=== PATIENT | male | born 1960 | race Caucasian/White ===

== ENCOUNTER → 2019-12-15 | Outpatient (CLI) | payer OTHER ==
--- NOTE | 2019-12-16 05:18 | REP ---
Clinical: Solitary pulmonary nodule. Technique: Axial noncontrast images from the thoracic inlet to the upper abdomen with coronal and sagittal re-formations. Comparison: 02/09/2019. Findings: Solitary noncalcified 2.0 cm mass is identified in the superior segment of the right lower lobe which is increased in size from most recent prior examination available dated 02/09/2019 when the lesion measured approximately 1 cm. Small mediastinal lymph nodes measuring up to approximately 9 mm and nonspecific and relatively stable. No further nodule or mass identified. No consolidation. No effusion. No pneumothorax. Tracheobronchial tree is patent. Mediastinum demonstrates atherosclerotic changes to the thoracic aorta and coronary arteries without aortic aneurysm or cardiomegaly. No pericardial effusion. Surrounding musculoskeletal structures demonstrate age-related changes without focal abnormality. Limited upper abdomen demonstrates normal bilateral adrenal glands and presumed renal cysts. Impression: 1. Solitary nodule in the superior segment right lower lobe has increased to 2.0 cm. Pulmonary consultation is recommended. PET-CT and/or biopsy should be considered. Electronically Signed by Guillermo Quezada MD 12/16/2019 05:08 A
== END ==
LOC: M RAD 08:33
PROVIDERS: ATTEND Internal Medicine Pulmonary Disease
DX: R91.1 Solitary pulmonary nodule (principal)

== ENCOUNTER → 2020-01-17 | Outpatient (CLI) | payer OTHER ==
[~2020-01-17] MED LIST: ACET-683 PO; AMLO10TA5 PO; ANOR1AER PO; ASPI81TA26 PO; CARV12.5 PO; CARV6.25 PO; CIAL5TAB PO; CLOTCRE3 TOP; DULO1CAP4 PO; GLIP1TAB11 PO; GLIP5TAB20 PO; IPRA6SP NARES; JANU100T PO; LORA-243 PO; LOSA100T50 PO; LYRI200C PO; METF10004 PO; PRAV40TA2 PO; VENTAER INH
[2020-01-17 18:02] LABS: PLATELET COUNT, AUTOMATED 209 10^3/uL (150-450)
[2020-01-17 18:14] LABS: INR 0.96; PROTHROMBIN TIME 12.5 SECONDS (11.8-14.0)
[2020-01-17 18:15] LABS: PARTIAL THROMBOPLASTIN TIME 35.9 SECONDS (25.0-38.4)
== END ==
LOC: M PLALAB 15:37
PROVIDERS: ATTEND Internal Medicine Pulmonary Disease
DX: R91.1 Solitary pulmonary nodule (principal)

== ENCOUNTER → 2020-01-31 | Outpatient (CLI) | payer OTHER ==
[~2020-01-31] MED LIST changes: -AMLO10TA5 PO; +AMLO1TAB25 PO
--- NOTE | 2020-02-09 15:32 | SLEEPHOME ---
DATE OF PROCEDURE: 01/31/2020 ORDERED BY: Dr. Lerma Diagnostic home sleep testing was performed due to concern for the obstructive sleep apnea syndrome. For testing a nocturnal T3 respiratory monitoring device was used. Continuous record was made of pulse, oxygen saturation, airflow, chest and abdominal strain, and body position. 9 hours and 59 minutes of data were reviewed. They were 6 hours and 15 minutes marked as time in bed. During the interval marked time in bed, there were 53 respiratory events identified of 10 seconds in duration or greater for a respiratory event index of 8.5. The events were obstructive not exclusive to sleep position. Baseline pulse rate was 88 beats per minute; pulse rate ranged 75-104. Baseline saturation was 90%; saturations fell to 77%. Testing was performed in both the supine and nonsupine positions. IMPRESSION: Abnormal home sleep testing with repetitive respiratory events and oxygen desaturations to 77% with a respiratory event index of 8.5 is consistent with the obstructive sleep apnea syndrome. RECOMMENDATIONS: The patient should be encouraged to undergo formal sleep evaluation.
== END ==
LOC: M SLEEP HO 07:37
PROVIDERS: ATTEND Internal Medicine Pulmonary Disease
DX: R40.0 Somnolence (principal)

== ENCOUNTER → 2020-01-31 | Outpatient (CLI) | payer OTHER ==
[~2020-01-31] MED LIST changes: +LIDOCAINE 1% MDV 20ML VIAL As Ordered ONE
[2020-01-31 12:19] VITALS: BP 156/77
--- NOTE | 2020-01-31 15:31 | REP ---
CHEST, SINGLE VIEW: Single view of the chest is performed status post left lung biopsy. There is no pneumothorax. No acute findings are seen. IMPRESSION: No pneumothorax status post left lung biopsy. Electronically Signed by Frank Chilel MD 02/01/2020 11:16 P
--- NOTE | 2020-02-01 12:33 | REP ---
CT-guided right lower lobe lung biopsy The procedure is performed by JUVECNIO Brewster, under the direct supervision of Dr. Chilel. The patient has a history of a solitary nodule in the superior segment of the right lower lobe that has increased in size on the CT dated 12/15/2019 . The risks and benefits of the procedure were explained to the patient and informed consent was obtained both orally and written. Directly prior to the start of the procedure, a formal timeout was done in the exam room. The right lower lobe lung mass was localized using CT guidance. Skin was prepped and draped in the usual sterile fashion. 3 ml of 1% lidocaine 10 mg/ml was used as a local anesthetic. Using CT guidance a 19/20 gauge coaxial needle biopsy system was inserted and advanced into the nodule. 8 core biopsy samples were obtained and sent to the lab. CT images obtained directly after the biopsy show no evidence of pneumothorax. After the appropriate amount of monitored convalescence the patient was discharged from the department. Reviewed by JUVENCIO Byers 01/31/2020 02:13 P Electronically Signed by Frank Chilel MD 02/01/2020 12:24 P
== END ==
LOC: M IRPRO 07:54
PROVIDERS: ATTEND Internal Medicine Pulmonary Disease
DX: C34.31 Malignant neoplasm of lower lobe, right bronchus or lung (principal)

== ENCOUNTER → 2020-03-07 | Outpatient (CLI) | payer OTHER ==
[~2020-03-07] MED LIST changes: -LIDOCAINE 1% MDV 20ML VIAL As Ordered ONE
--- NOTE | 2020-04-14 11:57 | REP ---
WHOLE BODY PET CT SCAN FOR EVALUATION OF A RIGHT LUNG NODULE Dealy in reporting results from hospital computer malfunction from malware/ [employer]. COMPARISON: Recent CT of the chest dated 12/15/2019 that demonstrated an enlarging nodule in the superior segment of the right lower lobe. Whole body scanning is performed from the skull base to the upper thighs. NECK: There are no hypermetabolic foci. There is artifactual labeling of tonsillar tissues and vascular structures. CHEST: The known nodule in the right lung loweer lobe demonstrates hypermetabolic uptake with a maximal standard uptake value of 4.0. There are no other foci in the lung jones. There are no foci in the mediastinum, right or left nciolette, or right or left axilla. ABDOMEN, PELVIS, AND UPPER THIGHS: There are no hypermetabolic foci. There is nonspecific bowel radiolabeling. IMPRESSION: The patients enlarging nodule in the right lower lobe superior segment demonstrates hypermetabolic uptake. There are no other hypermetabolic foci. The study is performed with 7.03 mCi of F18 FDG. MTDD
== END ==
LOC: M PLARAD 13:30
PROVIDERS: ATTEND Internal Medicine Pulmonary Disease
DX: R91.1 Solitary pulmonary nodule (principal)

== ENCOUNTER → 2020-03-21 | Outpatient (CLI) | payer OTHER | LOC: M ONCR 09:30 | PROVIDERS: ATTEND General Practice | DX: C34.90 Malignant neoplasm of unspecified part of unspecified bronchus or lung (principal) ==

== ENCOUNTER → 2020-04-19 | Outpatient (RCR) | payer OTHER | LOC: M ONCR 03-30 13:58 | PROVIDERS: ATTEND General Practice | DX: C34.31 Malignant neoplasm of lower lobe, right bronchus or lung (principal) ==

== ENCOUNTER 2020-04-25 11:29 | Outpatient (RCR) | payer OTHER | END 2020-05-20 | LOC: M ONCR 11:29 | PROVIDERS: ATTEND General Practice | DX: C34.31 Malignant neoplasm of lower lobe, right bronchus or lung (principal) ==

== ENCOUNTER → 2020-07-28 | Outpatient (CLI) | payer OTHER ==
[~2020-07-28] MED LIST changes: +ISOVUE-370 76% 100ML VIAL As Ordered ONE; +PRED20TA PO
--- NOTE | 2020-07-28 14:29 | REP ---
INDICATION: LUNG CA FOLLOW UP COMPARISON: None TECHNIQUE: Axial contrast enhanced images from the thoracic inlet to the upper abdomen with coronal and sagittal reformations using 75 ml Isovue 370 intravenous contrast material. This CT examination was performed using the following dose reduction techniques: Automated exposure control, adjustment of mA and/or kv according to the patient's size, and use of iterative reconstruction technique. FINDINGS: Nodular lesion in the apical segment right lower lobe measures approximately 1.8 cm diameter and now demonstrates small amount of adjacent stranding possibly related to post biopsy changes. Reactive mediastinal adenopathy remains stable with lymph nodes up to 9 mm short axis diameter. Remainder of lung jones are well aerated and clear. No further significant nodules or mass lesions are identified. No consolidation. No effusion. No pneumothorax. Tracheobronchial tree is patent. Mediastinum demonstrates stable atherosclerotic changes to the thoracic aorta and coronary arteries without aortic aneurysm or dissection. No cardiomegaly or pericardial effusion. Limited upper abdomen demonstrates normal bilateral adrenal glands along with hepatosteatosis and presumed bilateral renal cysts. IMPRESSION: 1. Nodular apical right lower lobe lesion similar to prior examination. No new lesions or abnormalities are identified. 2. Nonacute upper abdominal findings. <Electronically signed by Guillermo Quezada > 07/28/20 [id number]
== END ==
LOC: M RAD 12:45
PROVIDERS: ATTEND General Practice
DX: C34.31 Malignant neoplasm of lower lobe, right bronchus or lung (principal); I70.0 Atherosclerosis of aorta; I25.10 Atherosclerotic heart disease of native coronary artery without angina pectoris
CPT/HCPCS: 71260; Q9967

== ENCOUNTER → 2020-08-02 | Outpatient (CLI) | payer OTHER ==
[~2020-08-02] MED LIST changes: -ISOVUE-370 76% 100ML VIAL As Ordered ONE
--- NOTE | 2020-08-02 11:38 | RADONC ---
Radiation Oncology Hx/FUP Radiation Oncology Hx/FUP Date of Service: Aug 02, 2020 Pt Identifier Boris Wilkins is a 59 year old male seen for a followup visit today at the department of radiation oncology for a history of stage I NSCLC of the RLL [id number] he completed SBRT 60 Gy in 5 fractions on 04/25/20. Diagnosis/Treatment History Oncologic History Mr. Wilkins is a 59 year old male, current 2 pack per day smoker with mild COPD, and a newly diagnosed stage I, [id number] NSCLC of the RLL. He has been evaluated by Dr. Reyes and deemed not a good lobectomy candidate. He is seen today for consideration of SBRT to treat this lesion. Of note the lesion was first detected on CT ~8 years ago and has been followed expectantly until it was noted to have grown on CT from 12/15/19. Relevant Data: 01/31/20 CT biopsy Pathology showing NSCLC (adenocarcinoma) 03/07/20 PET-CT Demonstrating uptake in the RLL lesion, no mediastinal or distant uptake 07/28/19 CT chest decrease in the size of the treated lesion ~1.5 cm (from ~2 cm) Interval History Boris is doing well. No pain in the chest. Has some dysphagia to pills, hoping to see Dr. Reyes about this soon. Has minimal cough. Taking COPD controller meds, not using rescue inhaler often. Has noted some MCNEIL in recent months, which is largely stable. Thinks it might be a little worse since SBRT. No fevers, chills or weight loss. Current Therapy Surveillance Stage Stage IA3 NSCLC RLL [id number] Social History: Current 1/2 pk per day smoker 50+ pack years Non-drinker Allergies / Meds Allergies: Coded Allergies: bee venom protein (honey bee) (Verified Allergy, Severe, ANAPHYLAXIS, 01/31/20) Home Meds Active Scripts Prednisone (Prednisone) 20 Mg Tablet, 2 TAB PO DAILY for 5 Days, #10 TAB Prov:JAKY VAUGHN MD 08/02/20 Reported Medications Glipizide (Glipizide Xl) 10 Mg Tab.er.24, 10 MG PO BID, TAB 01/31/20 Aspirin (Aspirin EC) 81 Mg Tablet.dr, 81 MG PO DAILY, TAB 01/27/20 Metformin HCl (Metformin HCl) 1,000 Mg Tablet, 1000 MG PO BID, TAB 01/27/20 Pregabalin (Lyrica) 200 Mg Capsule, 200 MG PO BID 01/27/20 Amlodipine Besylate (Amlodipine Besylate) 10 Mg Tablet, 10 MG PO QPM 01/27/20 Carvedilol (Carvedilol) 12.5 Mg Tablet, 12.5 MG PO BID 01/27/20 Losartan Potassium (Losartan Potassium) 100 Mg Tablet, 100 MG PO QHS 01/27/20 Pravastatin Sodium (Pravastatin Sodium) 40 Mg Tablet, 40 MG PO QPM 01/27/20 Duloxetine Hcl (Duloxetine HCl) 20 Mg Capsule.dr, 20 MG PO DAILY 01/27/20 Umeclidinium Brm/Vilanterol Tr (Anoro Ellipta 62.5-25 Mcg INH) 1 Each Blst.w.dev, 1 PUFF PO DAILY 01/27/20 Review of Systems Review of Systems Constitutional: Denies: Chills, Fever, Fatigue, Weight Loss Eyes: Denies: Pain HEENT: Denies: Head Aches Skin: Denies: Rash Pulmonary: Reports: Dyspnea; Denies: Cough, Pleuritic Chest Pain Cardiovascular: Denies: Chest Pain, Palpitations Gastrointestinal: Denies: Nausea, Vomiting, Abdominal Pain Genitourinary: Denies: Dysuria Hematologic: Denies: Bruising Endocrine: Denies: Polydipsia Musculoskeletal: Denies: Neck pain, Back pain Neurological: Denies: Weakness, Numbness Psych: Reports: Mood Normal Physical Examination Vital Signs Wt 272 General Exam: Positive: Alert, Cooperative; Negative: No Acute Distress Eye Exam: Positive: PERRLA, EOMI ENT EXAM: Positive: Atraumatic Neck Exam: Positive: Supple Chest Exam: Positive: Clear to auscultation, Normal air movement; Negative: Wheezing Heart Exam: Positive: Rate Normal Abdomen Exam: Positive: Normal bowel sounds, Soft; Negative: Tenderness Extremity Exam: Negative: Edema Skin Exam: Positive: Nl turgor and temperature; Negative: Rash Neuro Exam: Positive: Normal Gait, Normal Speech, Cranial Nerves 3-12 NL Psych Exam: Positive: Mental status NL, Mood NL Diagnostic and Laboratory Diagnostic Review Radiologic images, relevant labs and pathology reports were personally reviewed and discussed with Mr. Wilkins. Assessment and Plan Impression Assessment Mr. Wilkins is a 59 year old male with a history of stage I NSCLC of the RLL [id number] he completed SBRT 60 Gy in 5 fractions on 04/25/20. Has some intermittent MCNEIL, worse recently, may be slight COPD exacerbation. Amenable to pulse of steroid. Will give 40 mg x 5 days. Hesitate to do longer due to DMII. His tumor is shrinking on the 07/28/20 CT chest showing good response to treatment with mild associated fibrosis. Will scan again in 6 months time. He prefers non-contrast scan as he is on metformin. He will call Dr. Reyes regarding his dysphagia, which is not related to RT. Performance Status ECOG [address] chest without contrast in 6 months Follow up in 6 months Prednisone 40 mg x 5 days, patient will call if ineffective or breathing worsens Mr. Wilkins was encouraged to call with questions or concerns in the interim period. AJKY VAUGHN MD Aug 02, 2020 11:38
== END ==
LOC: M ONCR 10:22
PROVIDERS: ATTEND General Practice
DX: Z08 Encounter for follow-up examination after completed treatment for malignant neoplasm (principal); C34.31 Malignant neoplasm of lower lobe, right bronchus or lung; F17.200 Nicotine dependence, unspecified, uncomplicated; Z92.3 Personal history of irradiation

== ENCOUNTER → 2021-01-30 | Outpatient (CLI) | payer OTHER ==
[~2021-01-30] MED LIST changes: +ADV250INH INH; +LOSA100T45 PO; -LOSA100T50 PO
== END ==
LOC: M RAD 11:55
PROVIDERS: ATTEND General Practice
DX: C34.90 Malignant neoplasm of unspecified part of unspecified bronchus or lung (principal)

== ENCOUNTER → 2021-02-02 | Outpatient (CLI) | payer OTHER ==
[~2021-02-02] MED LIST changes: -ADV250INH INH; -LOSA100T45 PO; +LOSA100T50 PO
[2021-02-02 10:29] LABS: BASO # 0.1 10^3/uL (0.0-0.2); BASO % 0.7 % (0.0-1.0); EOS # 0.2 10^3/uL (0.0-0.5); EOS % 2.1 % (0.0-3.0); HEMATOCRIT 49.4 % (42.0-52.0); HEMOGLOBIN 16.2 g/dl (13.5-17.5); LYMPH # 1.8 10^3/uL (1.5-5.0); LYMPH % 17.1 % (24.0-44.0); MEAN CORPUSCULAR HEMOGLOBIN 28.9 pg (27.0-33.0); MEAN CORPUSCULAR HGB CONC 32.8 g/dl (32.0-36.5); MEAN CORPUSCULAR VOLUME 88.1 fl (80.0-96.0); MONO # 0.7 10^3/uL (0.0-0.8); MONO % 6.7 % (2.0-8.0); NEUTROPHILS # 7.8 10^3/uL (1.5-8.5); NEUTROPHILS % 72.7 % (36.0-66.0); PLATELET COUNT, AUTOMATED 175 10^3/uL (150-450); RED BLOOD COUNT 5.61 10^6/uL (4.30-6.10); WHITE BLOOD COUNT 10.7 10^3/uL (4.0-10.0)
[2021-02-02 11:00] LABS: AMYLASE 40 U/L (25-115); LIPASE 215 U/L (73-393)
[2021-02-02 11:03] LABS: ALBUMIN 3.4 GM/DL (3.2-5.2); ALT/SGPT 80 U/L (12-78); BILIRUBIN,TOTAL 0.3 MG/DL (0.2-1.0); BLOOD UREA NITROGEN 16 MG/DL (7-18); CALCIUM LEVEL 10.3 MG/DL (8.8-10.2); CARBON DIOXIDE LEVEL 24 MEQ/L (21-32); CHLORIDE LEVEL 106 MEQ/L (98-107); CREATININE FOR GFR 0.72 MG/DL (0.70-1.30); GLOMERULAR FILTRATION RATE > 60.0 (>49); GLUCOSE, FASTING 302 MG/DL (70-100); POTASSIUM SERUM 4.4 MEQ/L (3.5-5.1); SODIUM LEVEL 137 MEQ/L (136-145); TOTAL PROTEIN 7.4 GM/DL (6.4-8.2)
== END ==
LOC: M ONCR 09:40
PROVIDERS: ATTEND General Practice
DX: C34.31 Malignant neoplasm of lower lobe, right bronchus or lung (principal)

== ENCOUNTER → 2021-02-02 | Outpatient (CLI) | payer OTHER ==
--- NOTE | 2021-02-02 10:21 | RADONC ---
Radiation Oncology Hx/FUP Radiation Oncology Hx/FUP Date of Service: Feb 02, 2021 Pt Identifier Boris Wilkins is a 60 year old male current smoker seen for a followup visit today at the department of radiation oncology for a history of stage I NSCLC of the RLL [id number] he completed SBRT 60 Gy in 5 fractions on 04/25/20. Diagnosis/Treatment History Oncologic History 2020: Newly diagnosed stage I, [id number] NSCLC of the RLL. He has been evaluated by Dr. Reyes and deemed not a good lobectomy candidate. He is seen today for consideration of SBRT to treat this lesion. Of note the lesion was first detected on CT ~8 years ago and has been followed expectantly until it was noted to have grown on CT from 12/15/19. 01/31/20 CT biopsy pathology showing NSCLC (adenocarcinoma) 03/07/20 PET-CT Demonstrating uptake in the RLL lesion, no mediastinal or distant uptake 07/28/20 CT chest decrease in the size of the treated lesion ~1.5 cm (from ~2 cm) 01/30/21 CT chest with further decrease in lesion size now 1.2 cm, no new lesions Survivorship: Test Due Next Last result Notes TSH, T4* 6m post-tx, then q1y N/A Carotid US* q10 y post-tx N/A Smoking cessation Assess annually if applicable Today Chest imaging As indicated, indefinite CT surveillance 07/2021 No new lesions of concern Mammograms Min q1y, in eligible female patients N/A Echocardiogram q10y post treatment if mediastinum treated N/A PFTs As indicated N/A CBC,CMP, Lipids q1y Today Interval History Boris reports he is being worked up by urology for obstructive voiding symptoms and concern for prostate cancer. He has stable MCNEIL, no cough, some mild dysphagia to pills, and solids as before. Not too bothersome. His main complaint today is RUQ pain, sharp intermittent, not associated with meals, no fevers or chills. No alleviating or exacerbating factors. Pain usually lasts for minutes, it is sometimes associated with tenderness when he presses on his abdomen. Appetite good and weight is up. Still smoking, no desire to quit today. Current Therapy Surveillance Stage RLL NSCLC stage IA3 [id number] Social History: Current 1 pk per day smoker 50+ pack years Non-drinker Allergies / Meds Allergies: Coded Allergies: bee venom protein (honey bee) (Verified Allergy, Severe, ANAPHYLAXIS, 01/31/20) Home Meds Active Scripts Prednisone (Prednisone) 20 Mg Tablet, 2 TAB PO DAILY for 5 Days, #10 TAB Prov:JAKY VAUGHN MD 08/02/20 Reported Medications Glipizide (Glipizide Xl) 10 Mg Tab.er.24, 10 MG PO BID, TAB 01/31/20 Aspirin (Aspirin EC) 81 Mg Tablet.dr, 81 MG PO DAILY, TAB 01/27/20 Metformin HCl (Metformin HCl) 1,000 Mg Tablet, 1000 MG PO BID, TAB 01/27/20 Pregabalin (Lyrica) 200 Mg Capsule, 200 MG PO BID 01/27/20 Amlodipine Besylate (Amlodipine Besylate) 10 Mg Tablet, 10 MG PO QPM 01/27/20 Carvedilol (Carvedilol) 12.5 Mg Tablet, 12.5 MG PO BID 01/27/20 Losartan Potassium (Losartan Potassium) 100 Mg Tablet, 100 MG PO QHS 01/27/20 Pravastatin Sodium (Pravastatin Sodium) 40 Mg Tablet, 40 MG PO QPM 01/27/20 Duloxetine Hcl (Duloxetine HCl) 20 Mg Capsule.dr, 20 MG PO DAILY 01/27/20 Umeclidinium Brm/Vilanterol Tr (Anoro Ellipta 62.5-25 Mcg INH) 1 Each Blst.w.dev, 1 PUFF PO DAILY 01/27/20 Review of Systems Review of Systems Constitutional: Reports: Fatigue; Denies: Chills, Fever, Weight Loss Eyes: Denies: Pain HEENT: Denies: Head Aches Skin: Denies: Rash Pulmonary: Reports: Dyspnea; Denies: Cough Cardiovascular: Denies: Chest Pain Gastrointestinal: Reports: Abdominal Pain; Denies: Nausea, Vomiting, Diarrhea, Hematochezia Genitourinary: Reports: Frequency; Denies: Dysuria, Retention Hematologic: Denies: Bruising Musculoskeletal: Denies: Neck pain, Back pain Neurological: Denies: Weakness, Numbness Psych: Reports: Mood Normal Physical Examination Vital Signs Ht 69" Wt 276 lbs T 97.1 P 108 RR 18 BP 155/80 O2 95% Pain 0 Fatigue 2 General Exam: Positive: Alert, Cooperative, No Acute Distress Eye Exam: Positive: PERRLAERROL ENT EXAM: Positive: Atraumatic Neck Exam: Positive: Supple; Negative: Lymphadenopathy Chest Exam: Positive: Clear to auscultation, Normal air movement; Negative: Rales, Wheezing Heart Exam: Positive: Rate Normal, Regular Rhythm Abdomen Exam: Positive: Normal bowel sounds; Negative: Soft (Abdomen is distended, non-tender, no fluid wave. Deep palpation in RUQ is negative for tenderness. ) Extremity Exam: Negative: Edema Neuro Exam: Positive: Normal Gait, Normal Speech, Cranial Nerves 3-12 NL Psych Exam: Positive: Mental status NL Diagnostic and Laboratory Diagnostic Review Radiologic images, relevant labs and pathology reports were personally reviewed and discussed with Mr. Wilkins. Assessment and Plan Impression Assessment Mr. Wilkins is a 60 year old male with a history of current smoker seen for a followup visit today at the department of radiation oncology for a history of stage I NSCLC of the RLL [id number] he completed SBRT 60 Gy in 5 fractions on 04/25/20. He is doing well from a lung cancer standpoint, the treated lesion continues to regress. For this we discussed another scan in 6 months time. With respect to smoking, we spent 4 minutes reviewing quit aids, he was polite and said he would think about quitting but is not ready to seriously consider it at this time. For his recent onset of RUQ pain, I wonder about gallbladder pathology, given the location and quality of the pain as well as his habitus. For this we discussed checking LFTs today and ordering a RUQ US to be done non-urgently. If there are any concerning findings we could then refer appropriately. I will see him back in [address] chest. Performance Status ECOG 1 Plan [address] chest RUQ US and bloodwork today Mr. Wilkins was encouraged to call with questions or concerns in the interim period. Billing Statement Total time of [32] minutes was spent preparing for the visit [2], obtaining HPI [5], examining the patient [4], reviewing diagnostic tests [4], discussing management options [8], coordinating care [2], and writing this note [7]. JAKY VAUGHN MD Feb 02, 2021 10:21
== END ==
LOC: M ONCR 08:59
PROVIDERS: ATTEND General Practice
DX: C34.31 Malignant neoplasm of lower lobe, right bronchus or lung (principal); R10.11 Right upper quadrant pain; F17.210 Nicotine dependence, cigarettes, uncomplicated; N13.9 Obstructive and reflux uropathy, unspecified; R06.09 Other forms of dyspnea; R13.10 Dysphagia, unspecified; Z79.899 Other long term (current) drug therapy; Z91.013 Allergy to seafood; Z92.3 Personal history of irradiation

== ENCOUNTER → 2021-02-15 | Outpatient (CLI) | payer OTHER ==
--- NOTE | 2021-02-15 10:41 | REP ---
INDICATION: RUQ PAIN. COMPARISON: CT chest without 01/30/2021 TECHNIQUE: Standard right upper quadrant sonography. FINDINGS: There is diffuse homogeneous hyperechogenicity throughout the liver. Liver is enlarged. Left lobe is mildly prominent as well. Hepatic contour is smooth. There is a 7 x 5 mm anechoic subcapsular focus in lateral segment left hepatic lobe consistent with a small cyst. I cannot see this in retrospect on the CT 2 weeks ago. The gallbladder is adequately filled. There is no wall thickening, mass or stone. There is fold in the gallbladder fundus as an anatomic variation. Technologist notes there is some mild tenderness on scanning. Common duct is 5.5 mm without a filling defect. Pancreas is obscured by extensive gas shadowing. The right kidney is 14.9 x 6.3 x 6 cm. It has sinus lipomatosis increased central fat with echogenic vessels in the hilum. 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 The exam is quite limited by body habitus considerations and extensive bowel gas. IMPRESSION: 1. Diffuse fatty infiltration of the liver with hepatomegaly and some mild prominence left hepatic lobe but smooth hepatic contours, homogeneous echotexture and no biliary dilatation, mass or ascites. There is a 7 x 5 mm hypoechoic focus peripherally subcapsular region of the left lobe, not seen on previous CT in retrospect. This is too small to precisely characterize but most likely represents a very small cyst. 2. Gallbladder without wall thickening, stone, pericholecystic fluid or sludge. Technologist notes some mild tenderness on scanning. Normal common duct at 5.5 mm without filling defect. 3. Right kidney without hydronephrosis the. Pancreas is obscured by gas shadowing. <Electronically signed by Narciso Vasquez > 02/15/21 [id number]
== END ==
LOC: M RAD 09:12
PROVIDERS: ATTEND General Practice
DX: R10.11 Right upper quadrant pain (principal)

== ENCOUNTER → 2021-08-09 | Outpatient (CLI) | payer OTHER ==
[~2021-08-09] MED LIST changes: +ADV250INH INH; +LOSA100T45 PO; -LOSA100T50 PO
== END ==
LOC: M ONCR 12:03
PROVIDERS: ATTEND General Practice
DX: C34.31 Malignant neoplasm of lower lobe, right bronchus or lung (principal); F17.210 Nicotine dependence, cigarettes, uncomplicated; Z92.3 Personal history of irradiation; Z91.030 Bee allergy status; Z79.899 Other long term (current) drug therapy

== ENCOUNTER → 2022-02-21 | Outpatient (CLI) | payer OTHER | LOC: M ONCR 11:02 | PROVIDERS: ATTEND General Practice | DX: R91.8 Other nonspecific abnormal finding of lung field (principal); J70.1 Chronic and other pulmonary manifestations due to radiation; R05.9 Cough, unspecified; R06.09 Other forms of dyspnea; Z92.3 Personal history of irradiation ==

== ENCOUNTER → 2022-05-27 | Outpatient (CLI) | payer OTHER | LOC: M ONCR 10:37 | PROVIDERS: ATTEND General Practice | DX: C34.31 Malignant neoplasm of lower lobe, right bronchus or lung (principal); F17.210 Nicotine dependence, cigarettes, uncomplicated; R07.89 Other chest pain; Z91.030 Bee allergy status; Z79.899 Other long term (current) drug therapy; Z79.82 Long term (current) use of aspirin ==

== ENCOUNTER → 2022-11-27 | Outpatient (CLI) | payer OTHER ==
[~2022-11-27] MED LIST changes: -LOSA100T45 PO; +LOSA100T46 PO
== END ==
LOC: M ONCR 14:00
PROVIDERS: ATTEND General Practice
DX: C34.31 Malignant neoplasm of lower lobe, right bronchus or lung (principal); Z92.3 Personal history of irradiation

== ENCOUNTER → 2023-03-11 | Outpatient (CLI) | payer OTHER | LOC: M ONCR 13:29 | PROVIDERS: ATTEND General Practice | DX: C34.31 Malignant neoplasm of lower lobe, right bronchus or lung (principal); F17.210 Nicotine dependence, cigarettes, uncomplicated; R06.09 Other forms of dyspnea; Z71.2 Person consulting for explanation of examination or test findings; Z79.51 Long term (current) use of inhaled steroids; Z79.82 Long term (current) use of aspirin; Z79.84 Long term (current) use of oral hypoglycemic drugs; Z91.030 Bee allergy status; Z92.3 Personal history of irradiation ==

== ENCOUNTER → 2024-03-04 | Outpatient (CLI) | payer OTHER, MEDICAID | LOC: M RAD 09:48 | PROVIDERS: ATTEND General Practice | DX: C34.31 Malignant neoplasm of lower lobe, right bronchus or lung (principal) ==

== ENCOUNTER → 2024-03-11 | Outpatient (CLI) | payer OTHER, MEDICAID ==
[~2024-03-11] MED LIST changes: +FLUT1INH3 INH
== END ==
LOC: M ONCR 13:36
PROVIDERS: ATTEND General Practice
DX: C34.31 Malignant neoplasm of lower lobe, right bronchus or lung (principal); R06.09 Other forms of dyspnea; R59.0 Localized enlarged lymph nodes; F17.210 Nicotine dependence, cigarettes, uncomplicated; Z79.82 Long term (current) use of aspirin; Z79.84 Long term (current) use of oral hypoglycemic drugs; Z79.899 Other long term (current) drug therapy; Z91.030 Bee allergy status; Z92.3 Personal history of irradiation

== ENCOUNTER → 2024-04-05 | Outpatient (CLI) | payer OTHER, MEDICAID | LOC: M PLARAD 09:50 | PROVIDERS: ATTEND General Practice | DX: C34.31 Malignant neoplasm of lower lobe, right bronchus or lung (principal) | CPT/HCPCS: 78815; A9552 ==

== ENCOUNTER → 2024-04-15 | Outpatient (CLI) | payer OTHER, MEDICAID | LOC: M ONCR 13:49 | PROVIDERS: ATTEND General Practice | DX: C34.31 Malignant neoplasm of lower lobe, right bronchus or lung (principal); R59.0 Localized enlarged lymph nodes; F17.210 Nicotine dependence, cigarettes, uncomplicated; R97.20 Elevated prostate specific antigen [PSA]; Z79.82 Long term (current) use of aspirin; Z79.84 Long term (current) use of oral hypoglycemic drugs; Z79.899 Other long term (current) drug therapy; Z92.3 Personal history of irradiation ==

== ENCOUNTER → 2024-05-20 | Outpatient (RCR) | payer OTHER, MEDICAID ==
[~2024-05-20] MED LIST changes: +MELO7.5T35
== END ==
LOC: M ONCR 04-28 13:35
PROVIDERS: ATTEND General Practice
DX: Z51.0 Encounter for antineoplastic radiation therapy (principal); C34.31 Malignant neoplasm of lower lobe, right bronchus or lung

== ENCOUNTER 2024-05-21 10:30 | Outpatient (RCR) | payer OTHER, MEDICAID ==
[~2024-05-21 10:30] MED LIST changes: -ADV250INH INH; +ADVA1AER9 INH
[2024-05-31] MEDS ORDERED: PROT1TAB2 PO (10:56)
[2024-05-31] MEDS ORDERED: OXYC1SOL3 PO (10:56)
[2024-05-31] MEDS ORDERED: LIDO15SO8 PO (11:00)
[2024-06-01] MEDS ORDERED: PRED50TA PO (16:31)
[2024-06-01] MEDS ORDERED: AZIT-12 PO (16:31)
[2024-06-07] MEDS ORDERED: SUCR1TA PO (15:54)
== END 2024-06-19 ==
LOC: M ONCR 10:30
PROVIDERS: ATTEND General Practice
DX: Z51.0 Encounter for antineoplastic radiation therapy (principal); C34.31 Malignant neoplasm of lower lobe, right bronchus or lung

== ENCOUNTER → 2024-08-17 | Outpatient (CLI) | payer MEDICARE, MEDICAID ==
[~2024-08-17] MED LIST changes: +AZIT-12 PO; +GUAI100L6 PO; +GUAI1SOL7 PO; +ISOVUE-370 76% 100ML VIAL As Ordered ONE; +LIDO15SO8 PO; +OXYC1SOL3 PO; +PRED50TA PO; +PROT1TAB2 PO; +SUCR1TA PO
== END ==
LOC: M RAD 13:14
PROVIDERS: ATTEND General Practice
DX: C34.31 Malignant neoplasm of lower lobe, right bronchus or lung (principal); N28.1 Cyst of kidney, acquired
CPT/HCPCS: 71260; 74177; Q9967

== ENCOUNTER → 2024-09-07 | Outpatient (CLI) | payer MEDICARE, MEDICAID ==
[~2024-09-07] MED LIST changes: +IPRA0.00 NEB; -ISOVUE-370 76% 100ML VIAL As Ordered ONE
== END ==
LOC: M ONCR 08:37
PROVIDERS: ATTEND General Practice
DX: J98.4 Other disorders of lung (principal); C34.31 Malignant neoplasm of lower lobe, right bronchus or lung; F17.210 Nicotine dependence, cigarettes, uncomplicated; Z92.3 Personal history of irradiation; Z91.030 Bee allergy status; Z79.51 Long term (current) use of inhaled steroids; Z79.899 Other long term (current) drug therapy; Z79.1 Long term (current) use of non-steroidal anti-inflammatories (NSAID); Z79.82 Long term (current) use of aspirin

== ENCOUNTER 2024-10-25 17:39 | Emergency (ER) | payer MEDICARE, MEDICAID ==
[~2024-10-25] VITALS: Ht 175.3 cm; Wt 121.1 kg
[~2024-10-25 17:39] MED LIST changes: +GLIP-318 PO; -GLIP5TAB20 PO
[2024-10-25 17:42] VITALS: BP 150/73; TEMP 98; O2SAT 96
[2024-10-25 19:25] LABS: BASO % 0.3 % (0.0-1.0); HEMATOCRIT 44.8 % (42.0-52.0); HEMOGLOBIN 15.2 g/dl (13.5-17.5); LYMPH # 1.2 10^3/uL (1.5-5.0); LYMPH % 9.6 % (24.0-44.0); MEAN CORPUSCULAR HGB CONC 33.9 g/dl (32.0-36.5); MEAN CORPUSCULAR VOLUME 85.3 fl (80.0-96.0); MONO # 0.7 10^3/uL (0.0-0.8); MONO % 5.6 % (2.0-8.0); NEUTROPHILS # 10.6 10^3/uL (1.5-8.5); NEUTROPHILS % 82.8 % (36.0-66.0); PLATELET COUNT, AUTOMATED 221 10^3/uL (150-450); RED BLOOD COUNT 5.25 10^6/uL (4.30-6.10); WHITE BLOOD COUNT 12.8 10^3/uL (4.0-10.0)
[2024-10-25 19:52] LABS: CK-MB VALUE MASS < 1.0 NG/ML (<3.6); LIPASE 90 U/L (12-53)
[2024-10-25 19:53] LABS: CK-MB VALUE MASS < 1.0 NG/ML (<3.6); CPK CREATINE PHOSPHOKINASE 49 U/L (46-171); MB/CK RELATIVE INDEX 2.04 (< OR =4)
[2024-10-25 19:54] LABS: CPK CREATINE PHOSPHOKINASE 50 U/L (46-171)
[2024-10-25 19:55] LABS: ALBUMIN 3.6 G/DL (3.2-5.2); ALKALINE PHOSPHATASE 81 U/L (40-129); ALT/SGPT 39 U/L (7.0-40); AST/SGOT 10 U/L (<34); BILIRUBIN,DIRECT 0.1 MG/DL (<0.4); BILIRUBIN,TOTAL 0.3 MG/DL (0.3-1.2); BLOOD UREA NITROGEN 21 MG/DL (9-23); CALCIUM LEVEL 10.9 MG/DL (8.3-10.6); CARBON DIOXIDE LEVEL 23 MMOL/L (20-31); CHLORIDE LEVEL 104 MMOL/L (98-107); CREATININE FOR GFR 0.52 MG/DL (0.70-1.30); GLOMERULAR FILTRATION RATE > 60.0 (>49); GLUCOSE, FASTING 398 MG/DL (74-106); POTASSIUM SERUM 4.6 MMOL/L (3.5-5.1); SODIUM LEVEL 136 MMOL/L (136-145); TOTAL PROTEIN 6.8 G/DL (5.7-8.2)
[2024-10-25 19:56] LABS: THYROID STIMULATING HORMONE 0.359 uIU/ML (0.55-4.78)
[2024-10-25 19:57] LABS: FREE T4 0.98 NG/DL (0.89-1.76)
[2024-10-29] MEDS ORDERED: PRED20TA PO (13:03)
[2024-10-29] MEDS ORDERED: PRED10TA2 PO (13:03)
[2024-10-29] MEDS ORDERED: PRED1TABL PO (13:04)
== END 2024-10-25 19:29 | disposition left against medical advice (07) ==
LOC: M ED 17:39
DX: Z53.21 Procedure and treatment not carried out due to patient leaving prior to being seen by health care provider (principal)

== ENCOUNTER → 2024-10-29 | Outpatient (CLI) | payer MEDICARE, MEDICAID ==
[~2024-10-29] MED LIST changes: +ISOVUE-370 76% 100ML VIAL As Ordered ONE; +PRED10TA2 PO; +PRED1TABL PO
== END ==
LOC: M RAD 11:26
PROVIDERS: ATTEND General Practice
DX: C34.31 Malignant neoplasm of lower lobe, right bronchus or lung (principal)
CPT/HCPCS: 36415; 71275; 80053; 85025; G0463; Q9967

== ENCOUNTER → 2024-10-29 | Outpatient (CLI) | payer MEDICARE, MEDICAID ==
[~2024-10-29] MED LIST changes: -ISOVUE-370 76% 100ML VIAL As Ordered ONE
[2024-10-29 11:17] LABS: BASO # 0.1 10^3/uL (0.0-0.2); BASO % 0.8 % (0.0-1.0); EOS # 0.2 10^3/uL (0.0-0.5); HEMATOCRIT 48.8 % (42.0-52.0); HEMOGLOBIN 16.3 g/dl (13.5-17.5); LYMPH # 1.4 10^3/uL (1.5-5.0); LYMPH % 11.7 % (24.0-44.0); MEAN CORPUSCULAR HEMOGLOBIN 28.6 pg (27.0-33.0); MEAN CORPUSCULAR HGB CONC 33.4 g/dl (32.0-36.5); MEAN CORPUSCULAR VOLUME 85.6 fl (80.0-96.0); MONO # 0.8 10^3/uL (0.0-0.8); MONO % 6.5 % (2.0-8.0); NEUTROPHILS # 9.1 10^3/uL (1.5-8.5); NEUTROPHILS % 77.3 % (36.0-66.0); PLATELET COUNT, AUTOMATED 212 10^3/uL (150-450); WHITE BLOOD COUNT 11.8 10^3/uL (4.0-10.0)
[2024-10-29 11:56] LABS: ALBUMIN 3.6 G/DL (3.2-5.2); ALKALINE PHOSPHATASE 75 U/L (40-129); ALT/SGPT 45 U/L (7.0-40); AST/SGOT 17 U/L (<34); BILIRUBIN,TOTAL 0.5 MG/DL (0.3-1.2); BLOOD UREA NITROGEN 13 MG/DL (9-23); CARBON DIOXIDE LEVEL 26 MMOL/L (20-31); CHLORIDE LEVEL 100 MMOL/L (98-107); CREATININE FOR GFR 0.47 MG/DL (0.70-1.30); GLOMERULAR FILTRATION RATE > 90.0 (>49); GLUCOSE, FASTING 291 MG/DL (74-106); POTASSIUM SERUM 4.3 MMOL/L (3.5-5.1); SODIUM LEVEL 136 MMOL/L (136-145); TOTAL PROTEIN 6.7 G/DL (5.7-8.2)
== END ==
LOC: M ONCR 10:38
PROVIDERS: ATTEND General Practice
DX: R07.1 Chest pain on breathing (principal); R06.09 Other forms of dyspnea; R07.89 Other chest pain; R05.8 Other specified cough; C34.91 Malignant neoplasm of unspecified part of right bronchus or lung

== ENCOUNTER → 2024-11-26 | Outpatient (CLI) | payer MEDICARE, MEDICAID ==
[~2024-11-26] MED LIST changes: +PRED-1142 PO; -PRED1TABL PO; -PRED50TA PO; +PRED50TA57 PO
== END ==
LOC: M ONCR 10:04
PROVIDERS: ATTEND General Practice
DX: Z08 Encounter for follow-up examination after completed treatment for malignant neoplasm (principal); Z85.118 Personal history of other malignant neoplasm of bronchus and lung; F17.218 Nicotine dependence, cigarettes, with other nicotine-induced disorders; Z92.3 Personal history of irradiation; Z99.81 Dependence on supplemental oxygen; Z91.030 Bee allergy status; Z79.51 Long term (current) use of inhaled steroids; Z79.1 Long term (current) use of non-steroidal anti-inflammatories (NSAID); Z79.82 Long term (current) use of aspirin; Z79.899 Other long term (current) drug therapy; Z79.84 Long term (current) use of oral hypoglycemic drugs

== ENCOUNTER → 2025-02-28 | Outpatient (CLI) | payer MEDICARE, MEDICAID ==
[~2025-02-28] MED LIST changes: -PRAV40TA2 PO; +PRAV40TA85 PO
== END ==
LOC: M RAD 11:48
PROVIDERS: ATTEND General Practice
DX: C34.31 Malignant neoplasm of lower lobe, right bronchus or lung (principal); I25.10 Atherosclerotic heart disease of native coronary artery without angina pectoris; I25.84 Coronary atherosclerosis due to calcified coronary lesion; K44.9 Diaphragmatic hernia without obstruction or gangrene; K76.0 Fatty (change of) liver, not elsewhere classified; R16.0 Hepatomegaly, not elsewhere classified; N28.1 Cyst of kidney, acquired

== ENCOUNTER → 2025-03-08 | Outpatient (CLI) | payer MEDICARE, MEDICAID | LOC: M ONCR 08:43 | PROVIDERS: ATTEND General Practice | DX: C34.31 Malignant neoplasm of lower lobe, right bronchus or lung (principal); F17.210 Nicotine dependence, cigarettes, uncomplicated; Z79.899 Other long term (current) drug therapy; Z91.030 Bee allergy status; Z92.3 Personal history of irradiation ==

== ENCOUNTER 2025-05-30 01:48 | Emergency (ER) | payer MEDICARE, MEDICAID ==
[~2025-05-30] VITALS: Ht 172.7 cm; Wt 116.2 kg
[2025-05-30] MEDS ORDERED: DULA4.5P (02:27)
[2025-05-30] MEDS ORDERED: FARX1TAB3 (02:27)
[2025-05-30 02:50] LABS: BASO # 0.1 10^3/uL (0.0-0.2); BASO % 0.6 % (0.0-1.0); EOS # 0.2 10^3/uL (0.0-0.5); EOS % 1.2 % (0.0-3.0); LYMPH # 1.1 10^3/uL (1.5-5.0); LYMPH % 5.9 % (24.0-44.0); MONO # 1.1 10^3/uL (0.0-0.8); MONO % 5.8 % (2.0-8.0); NEUTROPHILS # 16.4 10^3/uL (1.5-8.5); NEUTROPHILS % 85.0 % (36.0-66.0); PLATELET COUNT, AUTOMATED 287 10^3/uL (150-450)
[2025-05-30] MEDS: TRANEXAMIC ACID INJection 1,000 MG in D5W 100 ML IV ONE (03:02)
[2025-05-30 03:12] LABS: INR 0.91
[2025-05-30 03:19] LABS: C REACTIVE PROTEIN QUANTITATIV 3.25 MG/DL (<1.0)
[2025-05-30 03:20] LABS: ALT/SGPT 31 U/L (7.0-40); AST/SGOT 20 U/L (<34); CALCIUM LEVEL 10.3 MG/DL (8.3-10.6); CARBON DIOXIDE LEVEL 24 MMOL/L (20-31); CHLORIDE LEVEL 103 MMOL/L (98-107); CREATININE FOR GFR 0.58 MG/DL (0.70-1.30); GLOMERULAR FILTRATION RATE > 90.0 (>49); POTASSIUM SERUM 4.3 MMOL/L (3.5-5.1); SODIUM LEVEL 137 MMOL/L (136-145)
[2025-05-30] MEDS ORDERED: ISOVUE-370 76% 100 ML VIAL As Ordered ONE (03:26)
[2025-05-30] MEDS ORDERED: TRAN650T PO (05:13)
[2025-05-30] MEDS ORDERED: LEVO1TAB40 PO (05:13)
[2025-05-30] MEDS: LEVALBUTEROL 1.25 MG 0.5ML CONCENTRATE NEB NEB ONE (05:45)
[2025-05-30] MEDS: LevoFLOXacin IV 750 MG in IV 1 EA IV ONE (05:48)
[2025-05-30 07:45] VITALS: BP 114/57; TEMP 98.2; O2SAT 93
== END 2025-05-30 07:50 | disposition home or self-care (01) ==
LOC: M ED 01:48
DX: J44.1 Chronic obstructive pulmonary disease with (acute) exacerbation (principal); R04.2 Hemoptysis; R91.8 Other nonspecific abnormal finding of lung field; E78.5 Hyperlipidemia, unspecified; E11.9 Type 2 diabetes mellitus without complications; I10 Essential (primary) hypertension; K76.0 Fatty (change of) liver, not elsewhere classified; K21.9 Gastro-esophageal reflux disease without esophagitis; Z86.79 Personal history of other diseases of the circulatory system; Z91.030 Bee allergy status; Z79.52 Long term (current) use of systemic steroids; Z79.899 Other long term (current) drug therapy; Z79.82 Long term (current) use of aspirin; Z79.4 Long term (current) use of insulin
CPT/HCPCS: 70491; 71045; 71275; 80053; 83690; 84145; 85025; 85610; 85730; 86140; 96365; 96366; 96375; 99285; J1100; J1956; Q9967